=== PATIENT | female | born 1990 | race Caucasian/White ===

== ENCOUNTER 2016-05-22 03:55 | Emergency (ER) | payer OTHER ==
[2016-05-22 04:01] VITALS: BMI 22.3
[2016-05-22] MEDS ORDERED: SODIUM CHLORIDE 1,000 ML IV STA (04:21)
[2016-05-22] MEDS ORDERED: ONDANSETRON 4 MG/2 ML VIAL IVPUSH ONE (04:21)
[2016-05-22] MEDS ORDERED: ONDANSETRON 4 MG/2 ML VIAL ONE (04:34)
[2016-05-22 04:54] LABS: BASOPHIL 0.6 % (0-2.0); EOSINOPHIL 5.8 % (0-4.5); MCH 27.7 pg (25.7-33.7); MCHC 32.9 g/dl (32.0-36.0); MEAN CELL VOLUME 84.1 fl (80-96); MEAN PLT VOLUME 9.5 fl (7.5-11.1); NEUTROPHILS 68.8 % (42.8-82.8); PLATELET COUNT 196 K/MM3 (134-434); RDW 14.4 % (11.6-15.6)
[2016-05-22 04:55] LABS: URINE APPEARANCE CLEAR; URINE BILIRUBIN NEGATIVE (NEGATIVE); URINE COLOR LTYELLOW; URINE GLUCOSE (UA) NEGATIVE (NEGATIVE); URINE KETONE NEGATIVE (NEGATIVE); URINE LEUK ESTERASE NEGATIVE (NEGATIVE); URINE NITRITE NEGATIVE (NEGATIVE); URINE PROTEIN NEGATIVE (NEGATIVE); URINE UROBILINOGEN NEGATIVE E.U./dl (0.2-1.0)
[2016-05-22 05:06] LABS: URINE BLOOD 3+ (NEGATIVE)
[2016-05-22 05:13] LABS: URINE MUCUS FEW; URINE RBC <1 /hpf (0-3); URINE WBC 4 /hpf (3-5)
[2016-05-22 05:23] LABS: ALBUMIN 3.6 g/dl (3.4-5.0); AMYLASE 71 U/L (25-115); ANION GAP 7 (8-16); BILIRUBIN,DIRECT 0.1 mg/dL (0.0-0.2); BILIRUBIN,TOTAL 0.3 mg/dL (0.2-1.0); CO2 27 mmol/L (21-32); CREATININE 0.8 mg/dL (0.55-1.02); GLUCOSE,RANDOM 97 mg/dL (74-106); SGOT/AST 45 U/L (15-37); SGPT/ALT 33 U/L (12-78); TOT PROT 6.8 g/dl (6.4-8.2)
[2016-05-22 05:26] LABS: ALK PHOS 76 U/L (45-117)
[2016-05-22 05:30] LABS: TROPONIN I < 0.02 ng/ml (0.00-0.05)
--- NOTE | 2016-05-22 06:00 | PDOC ---
[id number] ABD PAIN Time Seen by Provider: 05/22/16 04:05 History Source: Patient Exam Limitations: No Limitations - History of Present Illness Travel History: No Initial Comments: 05/22/16 04:47 26yo Female patient presents to ED via EMS c/o sudden onset epigastric abd pain. Patient states she fell asleep at 7pm after eating to be woken up by abd pain at 12am. Boyfriend states he accidentally gave her Percocet when abd pain worsened shortly after. She denies n/v/d, fever, CP, back pain, diff breathing, cough, dysuria, rectal bleeding or any other complaints at this time. LNMP: Current. Timing/Duration: reports: getting worse Quality: reports: severe Abdominal Pain Onset Location: reports: RUQ, epigastric Pain Radiation: reports: no radiation Activities at Onset: reports: no specific activity Treatment Prior to Arrive: worse with: analgesics, antacids, cold pack, heat, laxative, enema, other Alleviating Factors: worse with: None, Belching, Shallow Breathing, Defecation, Eating, Holding Breath, Passing Gas, Change in Position, Rest, Voiding, Vomiting Past History - Travel Traveled outside of the country in the last 30 days: No Close contact w/someone who was outside of country & ill: No - Past Medical History Allergies/Adverse Reactions: Allergies Allergy/AdvReac Type Severity Reaction Status Date / Time No Known Allergies Allergy Verified 09/08/15 13:37 Home Medications: Ambulatory Orders Oxycodone HCl/Acetaminophen [Percocet 5-325 mg Tablet] 1 - 2 tab PO Q4H #40 tablet MDD 10 06/14/16 - Reproductive History (#): 2 Para: 1 - Immunization History Immunization Up to Date: Yes - Psycho/Social/Smoking Cessation Hx Anxiety: No Suicidal Ideation: No Smoking Status: No Smoking History: Never smoked Have you smoked in the past 12 months: No Number of Cigarettes Smoked Daily: 0 Information on smoking cessation initiated: No Hx Alcohol Use: No Drug/Substance Use Hx: No Substance Use Type: None Abd/GI Specific PMHX - Complaint Specific PMHX Colitis: No Diverticulitis: No Gall Bladder Disease: No GERD: No Hepatitis: No Irritable Bowel Synd (IBS): No Pancreatitis: No GI Ulcer Disease: No Review of Systems - Review of Systems Able to Perform ROS?: Yes Is the patient limited [place] proficient: No Constitutional: No: Chills, Fever Respiratory: No: Shortness of Breath, Stridor, Wheezing Cardiac (ROS): No: Chest Pain, Lightheadedness, Palpitations, Syncope, Chest Tightness ABD/GI: No: Constipated, Diarrhea, Nausea, Poor Appetite, Poor Fluid Intake, Rectal Bleeding, Vomiting, Tarry Stools : No: Dysuria, Hematuria Musculoskeletal: No: Back Pain All Other Systems: Reviewed and Negative *Physical Exam - Vital Signs Last Vital Signs Temp Pulse Resp BP Pulse Ox 97.7 F 64 15 113/79 100 05/22/16 03:59 05/22/16 03:59 05/22/16 03:59 05/22/16 03:59 05/22/16 03:59 - Physical Exam General Appearance: Yes: Nourished, Appropriately Dressed, Moderate Distress. No: Apparent Distress, Mild Distress, Severe Distress Neck: positive: Trachea midline, Supple. negative: Lymphadenopathy (R), Lymphadenopathy (L) Respiratory/Chest: positive: Lungs Clear, Normal Breath Sounds. negative: Respiratory Distress, Accessory Muscle Use, Labored Respiration, Rapid RR Cardiovascular: positive: Regular Rhythm, Regular Rate. negative: Edema, JVD, Murmur Gastrointestinal/Abdominal: positive: Tender (epigastric abdominal pain), Soft, Decreased BS, Guarding, Rebound, Tenderness Musculoskeletal: positive: Normal Inspection. negative: CVA Tenderness Extremity: positive: Normal Capillary Refill, Normal Inspection, Normal Range of Motion Integumentary: positive: Normal Color, Dry, Warm Neurologic: positive: labor relations manager II-XII NML intact, Fully Oriented, Alert, Normal Mood/ Affect, Normal Response, Motor Strength 5/5 ED Treatment Course - LABORATORY CBC & Chemistry Diagram: 05/22/16 04:37 05/22/16 04:37 - ADDITIONAL ORDERS Additional order review: Laboratory Results 05/22/16 05/22/16 05/22/16 04:37 04:37 04:37 Sodium 140 Potassium 3.7 Chloride 106 Carbon Dioxide 27 Anion Gap 7 L BUN 11 D Creatinine 0.8 Random Glucose 97 Calcium 8.0 L Total Bilirubin 0.3 D Direct Bilirubin 0.1 AST 45 H D ALT 33 D Alkaline Phosphatase 76 D Creatine Kinase 52 Troponin I < 0.02 Total Protein 6.8 Albumin 3.6 Total Amylase 71 Lipase 365 Beta HCG, Quant < 1.0 Urine Color Ltyellow Urine Appearance Clear Urine pH 5.0 Ur Specific [place] 1.020 Urine Protein Negative Urine Glucose (UA) Negative Urine Ketones Negative Urine Blood 3+ H Urine Nitrite Negative Urine Bilirubin Negative Urine Urobilinogen Negative Ur Leukocyte Esterase Negative Urine RBC <1 Urine WBC 4 Ur Epithelial Cells Few Urine Mucus Few 05/22/16 04:37 RBC 5.01 MCV 84.1 MCHC 32.9 RDW 14.4 MPV 9.5 Neutrophils % 68.8 Lymphocytes % 18.6 Monocytes % 6.2 Eosinophils % 5.8 H D Basophils % 0.6 - RADIOLOGY Radiology Studies Ordered: Category Date Time Status ABDOMEN & PELVIS CT WITH CONTR [CT] Stat CT Scan 05/22/16 04:21 Ordered CHEST PA & LAT [RAD] Stat Radiology 05/22/16 04:21 Ordered - Medications Given in the ED: ED Medications Discontinued Medications Generic Name Dose Route Start Last Admin Trade Name Freq PRN Reason Stop Dose Admin Sodium Chloride 1,000 mls @ 1,000 mls/hr 05/22/16 04:21 05/22/16 04:45 Normal Saline - IV 05/22/16 05:20 1,000 mls/hr ASDIR STA Administration Ondansetron HCl 4 mg 05/22/16 04:21 05/22/16 04:45 Zofran Injection IVPUSH 05/22/16 04:22 4 mg ONCE ONE Administration *DC/Admit/Observation/Transfer Diagnosis at time of Disposition: Abdominal pain Qualifiers: Abdominal location: epigastric Qualified Code(s): R10.13 - Epigastric pain - Discharge Dispostion Disposition: HOME Condition at time of disposition: Good Admit: No - Referrals Referrals: Dmitry Julien MD [Staff Physician] - Marilynn Madrid MD [Primary Care Provider] - - Patient Instructions Printed Discharge Instructions: DI for Abdominal Pain-Adult, DI for Cholecystitis Additional Instructions: Although the Cat scan was essentially negative, I do recommend following up with a surgeon as referred. If symptoms worsen please come to the Emergency dept. Avoid fat greasy food. I have enclosed instructions about cholecystitis.
[2016-05-22] MEDS ORDERED: FAMOTIDINE 20 MG/50 ML IVPB 50 ML IVPB ONE ×2 (06:21→06:33)
[2016-05-22] MEDS ORDERED: PANTOPRAZOLE SODIUM 40 MG in SODIUM CHLORIDE 100 ML IVPB ONE (06:21)
[2016-05-22] MEDS ORDERED: PANTOPRAZOLE SODIUM 100 ML IVPB ONE (06:33)
--- NOTE | 2016-05-22 08:49 | PDOC ---
*Physical Exam - Vital Signs Last Vital Signs Temp Pulse Resp BP Pulse Ox 97.7 F 64 15 113/79 100 05/22/16 03:59 05/22/16 03:59 05/22/16 03:59 05/22/16 03:59 05/22/16 03:59 ED Treatment Course - LABORATORY CBC & Chemistry Diagram: 05/22/16 04:37 05/22/16 04:37 - ADDITIONAL ORDERS Additional order review: Laboratory Results 05/22/16 05/22/16 05/22/16 04:37 04:37 04:37 Sodium 140 Potassium 3.7 Chloride 106 Carbon Dioxide 27 Anion Gap 7 L BUN 11 D Creatinine 0.8 Random Glucose 97 Calcium 8.0 L Total Bilirubin 0.3 D Direct Bilirubin 0.1 AST 45 H D ALT 33 D Alkaline Phosphatase 76 D Creatine Kinase 52 Troponin I < 0.02 Total Protein 6.8 Albumin 3.6 Total Amylase 71 Lipase 365 Beta HCG, Quant < 1.0 Urine Color Ltyellow Urine Appearance Clear Urine pH 5.0 Ur Specific [place] 1.020 Urine Protein Negative Urine Glucose (UA) Negative Urine Ketones Negative Urine Blood 3+ H Urine Nitrite Negative Urine Bilirubin Negative Urine Urobilinogen Negative Ur Leukocyte Esterase Negative Urine RBC <1 Urine WBC 4 Ur Epithelial Cells Few Urine Mucus Few 05/22/16 04:37 RBC 5.01 MCV 84.1 MCHC 32.9 RDW 14.4 MPV 9.5 Neutrophils % 68.8 Lymphocytes % 18.6 Monocytes % 6.2 Eosinophils % 5.8 H D Basophils % 0.6 - Medications Given in the ED: ED Medications Discontinued Medications Generic Name Dose Route Start Last Admin Trade Name Isaac PRN Reason Stop Dose Admin Sodium Chloride 1,000 mls @ 1,000 mls/hr 05/22/16 04:21 05/22/16 04:45 Normal Saline - IV 05/22/16 05:20 1,000 mls/hr ASDIR STA Administration Pantoprazole Sodium 40 mg/ 100 mls @ 200 mls/hr 05/22/16 06:21 05/22/16 06:44 Sodium Chloride IVPB 05/22/16 06:50 200 mls/hr ONCE ONE Administration Famotidine/Sodium Chloride 50 mls @ 100 mls/hr 05/22/16 06:21 05/22/16 06:37 Pepcid 20 Mg Premixed Ivpb - IVPB 05/22/16 06:50 100 mls/hr ONCE ONE Administration Ondansetron HCl 4 mg 05/22/16 04:21 05/22/16 04:45 Zofran Injection IVPUSH 05/22/16 04:22 4 mg ONCE ONE Administration Medical Decision Making - Medical Decision Making 05/22/16 08:7 Received signout from Nurse Practitioner Rob. Patient with abdominal pain. Patient pending CT. Patient labs otherwise unremarkable. Patient presently comfortable. Vital signs stable. 05/22/16 08:48 Laboratory Tests 05/22/16 05/22/16 05/22/16 04:37 04:37 04:37 WBC 12.0 H Hgb 13.9 Hct 42.1 Plt Count 196 Neutrophils % 68.8 Sodium 140 Potassium 3.7 Chloride 106 Carbon Dioxide 27 Anion Gap 7 L Creatinine 0.8 Random Glucose 97 Calcium 8.0 L Direct Bilirubin 0.1 AST 45 H D ALT 33 D Troponin I Total Amylase 71 Lipase 365 Urine Blood 3+ H Ur Leukocyte Esterase Negative Urine RBC <1 Urine WBC 4 05/22/16 04:37 WBC Hgb Hct Plt Count Neutrophils % Sodium Potassium Chloride Carbon Dioxide Anion Gap Creatinine Random Glucose Calcium Direct Bilirubin AST ALT Troponin I < 0.02 Total Amylase Lipase Urine Blood Ur Leukocyte Esterase Urine RBC Urine WBC 05/22/16 09:10 Ct shows thickened with a small amount of pericholecystic fluid. There is no definite acid with acute cholecystitis cannot be excluded and follow-up images including sonogram or nuclear medicine imaging is now recommended. Otherwise the CT is negative. *DC/Admit/Observation/Transfer Diagnosis at time of Disposition: Abdominal pain Qualifiers: Abdominal location: epigastric Qualified Code(s): R10.13 - Epigastric pain - Discharge Dispostion Disposition: HOME Condition at time of disposition: Good - Referrals Referrals: Marilynn Madrid MD [Primary Care Provider] - Dmitry Julien MD [Staff Physician] - - Patient Instructions Printed Discharge Instructions: DI for Abdominal Pain-Adult, DI for Cholecystitis Additional Instructions: Although the Cat scan was essentially negative, I do recommend following up with a surgeon as referred. If symptoms worsen please come to the Emergency dept. Avoid fat greasy food. I have enclosed instructions about cholecystitis.
[2016-05-22 09:34] VITALS: BP 97/51; PULSE 61; TEMP 98
--- NOTE | 2016-05-22 12:42 | EKG ---
Test Reason : Blood Pressure : / mmHG Vent. Rate : 060 BPM Atrial Rate : 060 BPM P-R Int : 212 ms QRS Dur : 088 ms QT Int : 430 ms P-R-T Axes : 033 023 012 degrees QTc Int : 430 ms SINUS RHYTHM WITH SINUS ARRHYTHMIA WITH 1ST DEGREE A-V BLOCK ABNORMAL ECG NO PREVIOUS ECGS AVAILABLE Confirmed by SYD VANG, GRUPO ([id number]) on 05/22/2016 12:42:27 PM Referred By: Confirmed By:GRUPO VELARDE MD
== END 2016-05-22 09:34 | disposition home or self-care (01) ==
LOC: JER 03:55
PROC: 3E033GC Introduction of Other Therapeutic Substance into Peripheral Vein, Percutaneous Approach (ICD-10-PCS; principal; 2016-05-22)
DX: R10.13 Epigastric pain (principal)
CPT/HCPCS: 36415; 71020-TC; 74177-TC; 80048; 80076; 81003; 81015; 82150; 82550; 83690; 84484; 84702; 85025; 87086; 93005; 93010; 96374; 99282-25

== ENCOUNTER 2016-06-13 02:50 | Inpatient (IN) | payer OTHER ==
--- NOTE | 2016-06-13 03:02 | PDOC ---
History of Present Illness - General History Source: Patient Exam Limitations: No Limitations - History of Present Illness Initial Comments: 06/13/16 04:54 The patient is a 26 year old female with no significant past medical history who presents to the ED with right upper quadrant few hours prior to arrival. Patient was seen here on 05/22 for abdominal pain, where she was diagnosed with gallstones (shown on abdomen CT). She was treated with resolution and discharge. Patient returns today after she was awoken from her sleep with right upper quadrant pain and associated nausea and vomiting, but no diarrhea. The patient denies fever, chills, cough, SOB, chest pain, and palpitations. The patient denies dysuria, hematuria, urgency, and frequency. Allergies: NKDA Social History: No alcohol, tobacco, or drug use reported. Past Surgical History: None reported PCP: Dr. Tarik Forrest <Caryn Gill - Last Filed: 06/13/16 04:55> - General History Source: Patient <Milton Martinez - Last Filed: 06/13/16 19:36> - General Chief Complaint: Pain Stated Complaint: ABD PAIN Time Seen by Provider: 06/13/16 03:02 Past History <Caryn Gill - Last Filed: 06/13/16 04:55> - Reproductive History (#): 2 Para: 1 - Immunization History Immunization Up to Date: Yes - Psycho/Social/Smoking Cessation Hx Anxiety: No Suicidal Ideation: No Smoking Status: No Smoking History: Never smoked Have you smoked in the past 12 months: No Number of Cigarettes Smoked Daily: 0 Hx Alcohol Use: No Drug/Substance Use Hx: No Substance Use Type: None <Milton Martinez - Last Filed: 06/13/16 19:36> - Past Medical History Allergies/Adverse Reactions: Allergies Allergy/AdvReac Type Severity Reaction Status Date / Time No Known Allergies Allergy Verified 06/13/16 03:00 Home Medications: Ambulatory Orders NK [No Known Home Medication] 06/13/16 Review of Systems - Review of Systems Able to Perform ROS?: Yes Comments:: 06/13/16 04:55 CONSTITUTIONAL: Absent: fever, no chills, no fatigue EYES: Absent: visual changes ENT: Absent: ear pain, no sore throat CARDIOVASCULAR: Absent: chest pain, no palpitations RESPIRATORY: Absent: cough, no SOB GI: +right upper quadrant pain, nausea, vomiting Absent: no constipation, no diarrhea GENITOURINARY: Absent: dysuria, no frequency, no hematuria MUSCULOSKELETAL: Absent: back pain, no arthralgia, no myalgia SKIN: Absent: rash NEURO: Absent: headache <RonnieCaryn garcia - Last Filed: 06/13/16 04:55> *Physical Exam - Vital Signs Last Vital Signs Temp Pulse Resp BP Pulse Ox 98.1 F 75 18 135/73 99 06/13/16 03:39 06/13/16 03:39 06/13/16 03:39 06/13/16 03:39 06/13/16 03:39 - Physical Exam Comments: 06/13/16 04:55 GENERAL: Well-appearing, well-nourished. No apparent distress. HEENT: Normocephalic, atraumatic. PERRL, EOM intact. CARDIOVASCULAR: Normal S1, S2. Regular rate and rhythm. PULMONARY: Clear to auscultation bilaterally. ABDOMEN: Soft, non-distended, right upper quadrant tenderness, positive murphys sign, negative rebound and guarding. EXTREMITIES: Normal ROM in all four extremities. No gross deformities. SKIN: Warm, dry. No rash NEUROLOGICAL: No focal neurological deficits. <Caryn Gill - Last Filed: 06/13/16 04:55> ED Treatment Course - LABORATORY CBC & Chemistry Diagram: 06/13/16 03:00 06/13/16 03:00 - ADDITIONAL ORDERS Additional order review: 06/13/16 03:00 RBC 5.01 MCV 84.4 MCHC 32.7 RDW 14.4 MPV 9.8 Neutrophils % 55.2 Lymphocytes % 27.6 D Monocytes % 9.2 Eosinophils % 7.3 H Basophils % 0.7 - Medications Given in the ED: ED Medications Discontinued Medications Generic Name Dose Route Start Last Admin Trade Name Tuq PRN Reason Stop Dose Admin Hydromorphone HCl 0.5 mg 06/13/16 04:20 06/13/16 04:26 Dilaudid Injection - IVPUSH 06/13/16 04:21 0.5 mg ONCE ONE Administration Morphine Sulfate 6 mg 06/13/16 03:03 06/13/16 03:16 Morphine Injection - IVPUSH 06/13/16 03:04 6 mg ONCE ONE Administration Ondansetron HCl 4 mg 06/13/16 03:03 06/13/16 03:16 Zofran Injection IVPUSH 06/13/16 03:04 4 mg ONCE STA Administration <Caryn Gill - Last Filed: 06/13/16 04:55> - LABORATORY CBC & Chemistry Diagram: 06/13/16 18:20 06/13/16 03:00 <Milton Martinez - Last Filed: 06/13/16 19:36> Medical Decision Making - Medical Decision Making 06/13/16 19:35 Dr. Martinez: The scribe's documentation has been prepared under my direction and personally reviewed by me in its entirery. I confirm that the note above accurately reflects all work, treatment, procedures, and medical decision making performed by me. Patient found to have cholecystitis. [facility] be [facility] to [facility] <Milton Martinez - Last Filed: 06/13/16 19:36> *DC/Admit/Observation/Transfer - Attestations Scribe Attestion: 06/13/16 04:56 Documentation prepared by Caryn Gill, acting as senior medical director for Milton Martinez MD <Caryn Gill - Last Filed: 06/13/16 04:55> <Milton Martinez - Last Filed: 06/13/16 19:36> Diagnosis at time of Disposition: Cholecystitis - Discharge Dispostion Condition at time of disposition: Fair
[2016-06-13] MEDS ORDERED: ONDANSETRON 4 MG/2 ML VIAL IVPUSH STA (03:03)
[2016-06-13] MEDS ORDERED: morphine CARPU-JECT 2 MG/1 ML DISP.SYRIN IVPUSH ONE ×2 (03:03→20:06)
[2016-06-13] MEDS ORDERED: morphine CARPU-JECT 2 MG/1 ML DISP.SYRIN ONE (03:09)
[2016-06-13] MEDS ORDERED: ONDANSETRON 4 MG/2 ML VIAL ONE (03:09)
[2016-06-13] MEDS: SODIUM CHLORIDE 1,000 ML IV SCH ×2 (03:16→14:46)
[2016-06-13 03:23] LABS: BASOPHIL 0.7 % (0-2.0); EOSINOPHIL 7.3 % (0-4.5); MCH 27.6 pg (25.7-33.7); MCHC 32.7 g/dl (32.0-36.0); MEAN CELL VOLUME 84.4 fl (80-96); MEAN PLT VOLUME 9.8 fl (7.5-11.1); NEUTROPHILS 55.2 % (42.8-82.8); PLATELET COUNT 212 K/MM3 (134-434); RDW 14.4 % (11.6-15.6); WHITE BLOOD COUNT 10.6 K/mm3 (4.0-10.0)
[2016-06-13] MEDS ORDERED: HYDROmorphone HCL CARPU-JECT 1 MG/1 ML DISP.SYRIN IVPUSH ONE (04:20)
[2016-06-13 04:57] LABS: ALBUMIN 3.5 g/dl (3.4-5.0); ALK PHOS 66 U/L (45-117); AMYLASE 61 U/L (25-115); ANION GAP 10 (8-16); BILIRUBIN,TOTAL 0.3 mg/dL (0.2-1.0); CALCIUM 8.5 mg/dL (8.5-10.1); CO2 26 mmol/L (21-32); CREATININE 0.9 mg/dL (0.55-1.02); GLUCOSE,RANDOM 102 mg/dL (74-106); SGOT/AST 16 U/L (15-37); SGPT/ALT 14 U/L (12-78); TOT PROT 6.9 g/dl (6.4-8.2)
[2016-06-13 05:41] LABS: URINE APPEARANCE CLEAR; URINE BILIRUBIN NEGATIVE (NEGATIVE); URINE BLOOD NEGATIVE (NEGATIVE); URINE COLOR STRAW; URINE GLUCOSE (UA) NEGATIVE (NEGATIVE); URINE KETONE NEGATIVE (NEGATIVE); URINE LEUK ESTERASE NEGATIVE (NEGATIVE); URINE NITRITE NEGATIVE (NEGATIVE); URINE PROTEIN NEGATIVE (NEGATIVE); URINE UROBILINOGEN NEGATIVE E.U./dl (0.2-1.0)
--- NOTE | 2016-06-13 08:39 | PDOC ---
*Physical Exam - Vital Signs Last Vital Signs Temp Pulse Resp BP Pulse Ox 97.8 F 69 19 112/71 99 06/13/16 08:32 06/13/16 08:32 06/13/16 08:32 06/13/16 08:32 06/13/16 08:32 <Joe High - Last Filed: 06/13/16 08:40> - Vital Signs Last Vital Signs Temp Pulse Resp BP Pulse Ox 97.8 F 69 19 112/71 99 06/13/16 08:32 06/13/16 08:32 06/13/16 08:32 06/13/16 08:32 06/13/16 08:32 - Physical Exam Comments: 06/13/16 08:36 afebrile No jaundice. RUQ discomfort to palpation, guarding has resolved. <Shayan Gutierrez - Last Filed: 06/13/16 08:42> ED Treatment Course - LABORATORY CBC & Chemistry Diagram: 06/13/16 03:00 06/13/16 03:00 - ADDITIONAL ORDERS Additional order review: Laboratory Results 06/13/16 06/13/16 04:49 03:00 Sodium 140 Potassium 3.9 Chloride 104 Carbon Dioxide 26 Anion Gap 10 BUN 15 D Creatinine 0.9 Creat Clearance w eGFR > 60 Random Glucose 102 Calcium 8.5 Magnesium 2.0 Total Bilirubin 0.3 AST 16 D ALT 14 D Alkaline Phosphatase 66 Total Protein 6.9 Albumin 3.5 Total Amylase 61 Lipase 180 Urine Color Straw Urine Appearance Clear Urine pH 6.0 Ur Specific [place] 1.012 Urine Protein Negative Urine Glucose (UA) Negative Urine Ketones Negative Urine Blood Negative Urine Nitrite Negative Urine Bilirubin Negative Urine Urobilinogen Negative Ur Leukocyte Esterase Negative Urine HCG, Qual Negative 06/13/16 03:00 RBC 5.01 MCV 84.4 MCHC 32.7 RDW 14.4 MPV 9.8 Neutrophils % 55.2 Lymphocytes % 27.6 D Monocytes % 9.2 Eosinophils % 7.3 H Basophils % 0.7 - Medications Given in the ED: ED Medications Discontinued Medications Generic Name Dose Route Start Last Admin Trade Name Freq PRN Reason Stop Dose Admin Hydromorphone HCl 0.5 mg 06/13/16 04:20 06/13/16 04:26 Dilaudid Injection - IVPUSH 06/13/16 04:21 0.5 mg ONCE ONE Administration Morphine Sulfate 6 mg 06/13/16 03:03 06/13/16 03:16 Morphine Injection - IVPUSH 06/13/16 03:04 6 mg ONCE ONE Administration Ondansetron HCl 4 mg 06/13/16 03:03 06/13/16 03:16 Zofran Injection IVPUSH 06/13/16 03:04 4 mg ONCE STA Administration <Joe High - Last Filed: 06/13/16 08:40> - LABORATORY CBC & Chemistry Diagram: 06/13/16 03:00 06/13/16 03:00 - ADDITIONAL ORDERS Additional order review: Laboratory Results 06/13/16 06/13/16 04:49 03:00 Sodium 140 Potassium 3.9 Chloride 104 Carbon Dioxide 26 Anion Gap 10 BUN 15 D Creatinine 0.9 Creat Clearance w eGFR > 60 Random Glucose 102 Calcium 8.5 Magnesium 2.0 Total Bilirubin 0.3 AST 16 D ALT 14 D Alkaline Phosphatase 66 Total Protein 6.9 Albumin 3.5 Total Amylase 61 Lipase 180 Urine Color Straw Urine Appearance Clear Urine pH 6.0 Ur Specific [place] 1.012 Urine Protein Negative Urine Glucose (UA) Negative Urine Ketones Negative Urine Blood Negative Urine Nitrite Negative Urine Bilirubin Negative Urine Urobilinogen Negative Ur Leukocyte Esterase Negative Urine HCG, Qual Negative 06/13/16 03:00 RBC 5.01 MCV 84.4 MCHC 32.7 RDW 14.4 MPV 9.8 Neutrophils % 55.2 Lymphocytes % 27.6 D Monocytes % 9.2 Eosinophils % 7.3 H Basophils % 0.7 - Medications Given in the ED: ED Medications Discontinued Medications Generic Name Dose Route Start Last Admin Trade Name Isaac PRN Reason Stop Dose Admin Hydromorphone HCl 0.5 mg 06/13/16 04:20 06/13/16 04:26 Dilaudid Injection - IVPUSH 06/13/16 04:21 0.5 mg ONCE ONE Administration Morphine Sulfate 6 mg 06/13/16 03:03 06/13/16 03:16 Morphine Injection - IVPUSH 06/13/16 03:04 6 mg ONCE ONE Administration Ondansetron HCl 4 mg 06/13/16 03:03 06/13/16 03:16 Zofran Injection IVPUSH 06/13/16 03:04 4 mg ONCE STA Administration <Shayan Gutierrez - Last Filed: 06/13/16 08:42> Medical Decision Making - Medical Decision Making 06/13/16 08:39 Call made to , medication manager surgeon, awaiting call back. 06/13/16 08:40 Call back from , attending surgeon, case discussed. <Joe High - Last Filed: 06/13/16 08:40> - Medical Decision Making 06/13/16 08:37 Received signout on this 26-year-old female with known history of gallstones who presents with exacerbation of right upper quadrant pain. Labs were normal (wbc 10.6), plan was to follow-up ultrasound. Urine negative. Ultrasound shows impacted gallstones with thickened gallbladder wall and pericholecystic fluid. Given the persistence of right upper quadrant pain and discomfort on exam, will consult general surgery. Case was discussed with Dr. Andrea Winn of general surgery, who accepts the patient for admission and will likely operate later today. <Shayan Gutierrez - Last Filed: 06/13/16 08:42> *DC/Admit/Observation/Transfer - Attestations Scribe Attestion: 06/13/16 08:41 Documentation prepared by Joe High, acting as bilingual medical assistant for Shayan Gutierrez MD. <Joe High - Last Filed: 06/13/16 08:40> - Discharge Dispostion Admit: Yes <Shayan Gutierrez - Last Filed: 06/13/16 08:42> Diagnosis at time of Disposition: Cholecystitis - Discharge Dispostion Condition at time of disposition: Fair - Referrals Referrals: Tarik Forrest MD [Primary Care Provider] - - Patient Instructions - Post Discharge Activity
[2016-06-13] MEDS ORDERED: SODIUM CHLORIDE 1,000 ML IV ONE (08:41)
[2016-06-13 09:41] LABS: INR 1.14 (0.82-1.09); PROTHROMBIN TIME (PATIENT) 12.6 SEC (9.98-11.88)
[2016-06-13 12:11] VITALS: BMI 21.9
--- NOTE | 2016-06-13 13:27 | HP ---
Admitting History and Physical - Admission Chief Complaint: epigastric pain History of Present Illness: pt with severe epigastric pain lasting for hours. had this 3 weeks ago. In ED ultrasound shows thickened GB Wall, stones and CBD at 6.5mm. LFTs wnl. History Source: Patient - Past Medical History ...LMP: 05/22/16 - Smoking History Smoking history: Never smoked Have you smoked in the past 12 months: No Aproximately how many cigarettes per day: 0 - Alcohol/Substance Use Hx Alcohol Use: No Home Medications - Allergies Allergies/Adverse Reactions: Allergies Allergy/AdvReac Type Severity Reaction Status Date / Time No Known Allergies Allergy Verified 06/13/16 03:00 - Home Medications Home Medications: Ambulatory Orders NK [No Known Home Medication] 06/13/16 Family Disease History - Family Disease History Family History: Denies Review of Systems - Review of Systems Constitutional: denies: Chills, Fever Eyes: denies: Blind Spots, Blurred Vision HENT: denies: Difficult Swallowing, Ear Discharge Neck: denies: Decreased ROM, Lumps Cardiovascular: denies: Chest Pain, Edema Respiratory: denies: Cough, Exercise Intolerance Gastrointestinal: reports: Abdominal Pain. denies: Diarrhea Genitourinary: denies: Burning, Discharge Breasts: denies: Pain, Skin Changes Musculoskeletal: denies: Back Pain, Crepitus Integumentary: denies: Blister, Bruising Neurological: denies: Change in LOC, Change in Speech Endocrine: denies: Excessive Sweating, Flushing Hematology/Lymphatic: denies: Easily Bruised, Excessive Bleeding Psychiatric: denies: Altered Sleep Pattern, Anxiety Physical Examination Vital Signs: Vital Signs Temperature 97.8 F 06/13/16 08:32 Pulse Rate 66 06/13/16 10:00 Respiratory Rate 18 06/13/16 10:00 Blood Pressure 147/83 06/13/16 10:00 O2 Sat by Pulse Oximetry (%) 100 06/13/16 10:00 Constitutional: Yes: No Distress, Calm Eyes: Yes: Conjunctiva Clear, EOM Intact HENT: Yes: Atraumatic, Normocephalic Neck: Yes: Supple, Trachea Midline Cardiovascular: Yes: Regular Rate and Rhythm Respiratory: Yes: Regular, CTA Bilaterally Gastrointestinal: Yes: Soft, Tenderness, Epigastrium (min mild). No: Distention ...Rectal Exam: Yes: Deferred Renal/: No: CVA Tenderness - Left, CVA Tenderness - Right Breast(s): No: Dimpling, Skin Changes Musculoskeletal: No: Back Pain, Joint Stiffness Extremities: No: Calf Tenderness, Erythema Integumentary: No: Erythema, Rash Neurological: Yes: Alert, Oriented Psychiatric: Yes: Alert, Oriented Labs: CBC, BMP 06/13/16 03:00 06/13/16 03:00 Imaging - Results Ultrasound: Report Reviewed Problem List - Problems (1) Cholecystitis Assessment/Plan: explained to pt clinical significance of 6.5mm CBD. will order MRCP if schedule doesn't accomodate patient wants to have surgery with [facility] and understands possbility of needing ERCP. npo IVF Code(s): K81.9 - CHOLECYSTITIS, UNSPECIFIED
[2016-06-13] MEDS ORDERED: ROCURONIUM BROMIDE 50 MG/5 ML VIAL ONE (15:25)
[2016-06-13] MEDS ORDERED: PROPOFOL 20 ML ONE (15:25)
[2016-06-13] MEDS ORDERED: MIDAZOLAM HCL 2 MG/2 ML SINGLE DOSE VIAL ONE (15:26)
[2016-06-13] MEDS ORDERED: LIDOCAINE HCL/PF 2% SDV 5ML VIAL ONE (15:27)
[2016-06-13] MEDS ORDERED: ceFAZolin SODIUM 1 GM VIAL ONE (16:04)
[2016-06-13] MEDS ORDERED: ceFAZolin SODIUM 1 GM VIAL IVPB ONE (16:04)
[2016-06-13] MEDS ORDERED: SODIUM CHLORIDE 0.9% P/F 10 ML VIAL IJ ONE (16:04)
[2016-06-13] MEDS ORDERED: DEXAMETHASONE SOD PHOSPHATE 4 MG/1 ML VIAL ONE (16:21)
[2016-06-13] MEDS ORDERED: GLYCOPYRROLATE 0.2 MG/1 ML VIAL ONE (16:38)
[2016-06-13] MEDS ORDERED: LIDOCAINE HCL 4% TOPICAL SOLN (50 ML/BOTTLE) ONE (16:38)
[2016-06-13] MEDS ORDERED: NEOSTIGMINE METHYLSULFATE 0.5 MG/ML - 10 ML MDV ONE (16:40)
--- NOTE | 2016-06-13 16:42 | OP ---
Operative Note - Note: Operative Date: 06/13/16 Pre-Operative Diagnosis: acute on chronic cholecystitis Operation: laparoscopic cholecystectomy Findings: acute cholecystitis Post-Operative Diagnosis: Same as Pre-op Surgeon: Andrea Winn Fashion Consultant: Verna Raya Anesthesia: General Estimated Blood Loss (mls): 10 Operative Report Dictated: Yes
[2016-06-13] MEDS ORDERED: oxyCODONE HCL 5 MG TABLET PO PRN (16:45)
[2016-06-13] MEDS ORDERED: BUPIVACAINE HCL/PF 0.5% (5MG/ML) 10 ML VIAL IJ ONE (16:45)
[2016-06-13] MEDS ORDERED: ACETAMINOPHEN 325 MG TABLET (FP) PO PRN (16:45)
[2016-06-13] MEDS ORDERED: ZOLPIDEM TARTRATE 5 MG TABLET PO PRN (16:45)
[2016-06-13] MEDS ORDERED: ONDANSETRON 4 MG/2 ML VIAL IVPB PRN (16:45)
--- NOTE | 2016-06-13 16:59 | SURG ---
Surgery Element Winding Machine Tender Note Element Winding Machine Tender: Verna Raya PA-C Date of Service: 06/13/16 Diagnosis: acute on chronic cholecystitis Procedure: laparoscopic cholecystectomy I was present for the entirety of the operative procedure. For further detail, please refer to operative report. Visit type - Case Type Case Type: ED Admission - Emergency Emergency Visit: Yes ED Registration Date: 06/13/16 Care time: The patient presented to the Emergency Department on the above date and was hospitalized for further evaluation of their emergent condition. - New patient This patient is new to me today: Yes Date on this admission: 06/13/16 - Critical Care Critical Care patient: No
[2016-06-13] MEDS ORDERED: LACTATED RINGERS SOLUTION 1,000 ML IV SCH ×2 (17:00→17:15)
[2016-06-13] MEDS ORDERED: ONDANSETRON 4 MG/2 ML VIAL IVPUSH PRN (17:01)
[2016-06-13] MEDS ORDERED: PROMETHAZINE HCL 25 MG/1 ML VIAL IVPUSH PRN (17:01)
[2016-06-13 18:41] LABS: MCH 27.7 pg (25.7-33.7); MEAN PLT VOLUME 10.1 fl (7.5-11.1); PLATELET COUNT 191 K/MM3 (134-434); RDW 14.8 % (11.6-15.6)
[2016-06-13] MEDS ORDERED: ONDANSETRON 4 MG/2 ML VIAL IVPUSH ONE (20:10)
[2016-06-14] MEDS: SODIUM CHLORIDE 1,000 ML IV SCH (05:23)
[2016-06-14 08:00] VITALS: BP 105/63
[2016-06-14] MEDS: oxyCODONE HCL 5 MG TABLET PO PRN ×2 (08:05→12:49)
[2016-06-14 08:10] LABS: CALCIUM 8.7 mg/dL (8.5-10.1)
[2016-06-14 08:11] LABS: CREATININE 0.7 mg/dL (0.55-1.02)
--- NOTE | 2016-06-14 09:01 | PN ---
Progress Note (short form) - Note Progress Note: Anesthesia postop note 26 y/o F s/p GA for Laparoscopic cholecistectomy POD#1, vss, aaox3, pain well controlled, no complaints. No anesthesia complications.
--- NOTE | 2016-06-14 11:14 | DS ---
Physical Examination Vital Signs: Vital Signs Temperature 97.8 F 06/14/16 08:00 Pulse Rate 63 06/14/16 08:00 Respiratory Rate 20 06/14/16 08:00 Blood Pressure 105/63 06/14/16 08:00 O2 Sat by Pulse Oximetry (%) 96 06/13/16 22:00 Constitutional: Yes: Well Nourished, No Distress, Calm Eyes: Yes: Conjunctiva Clear, EOM Intact HENT: Yes: Atraumatic, Normocephalic Neck: Yes: Supple, Trachea Midline Cardiovascular: Yes: Regular Rate and Rhythm Respiratory: Yes: Regular, CTA Bilaterally Gastrointestinal: Yes: Soft, Distention, Tenderness (near incisions) ...Rectal Exam: Yes: Deferred Renal/: No: CVA Tenderness - Left, CVA Tenderness - Right Musculoskeletal: No: Joint Stiffness, Joint Swelling Extremities: No: Calf Tenderness, Erythema Integumentary: No: Erythema, Rash Wound/Incision: Yes: Clean/Dry, Well Approximated Neurological: Yes: Alert, Oriented Psychiatric: Yes: Alert, Oriented Labs: CBC, BMP 06/13/16 18:20 06/14/16 06:20 Discharge Summary Reason For Visit: CHOLECYSTITIS Current Active Problems Cholecystitis (Acute) Procedures: Principal: laparoscopic cholecystectomy Hospital Course: admitted for acute on chronic cholecystitis. underwent lap ruchi. did well and will be d/kevin Condition: Good - Instructions Diet, Activity, Other Instructions: low fat diet. take laxatives if taking pain medication. no heavy lifting 30lbs x 3 weeks. call office to make appt for follow up in 1-2 weeks [phone] Referrals: Tarik Forrest MD [Primary Care Provider] - Andrea Winn MD [Staff Physician] - Disposition: HOME - Home Medications Comprehensive Discharge Medication List: Ambulatory Orders Oxycodone HCl/Acetaminophen [Percocet 5-325 mg Tablet] 1 - 2 tab PO Q4H #40 tablet MDD 10 06/14/16
--- NOTE | 2016-06-14 12:42 | OP ---
DATE OF OPERATION: 06/13/2016 PREOPERATIVE DIAGNOSIS: Acute on chronic cholecystitis. POSTOPERATIVE DIAGNOSIS: Acute on chronic cholecystitis. SURGEON: Regine Winn MD WELL DRILL OPERATOR CABLE TOOL: KARIN Boothe ANESTHESIA: General endotracheal anesthesia. ESTIMATED BLOOD LOSS: Minimal. OPERATIVE INDICATIONS: Patient is a 26-year-old female with recurrent epigastric pain. On ultrasound had cholecystitis. However, the ultrasound read the common bile duct at 6.5 mm. She underwent a preoperative MRCP which may have shown a filling defect. However, given the lack of elevated liver function tests and that the ultrasound and the MRI showed findings more consistent with acute cholecystitis, the decision was made to proceed with laparoscopic cholecystectomy. Patient was brought to the operating room after confirming name, date of , and medical record number. She was placed in the supine position. Had SCDs for DVT prophylaxis. She was then intubated by the anesthesiologist. Appropriate perioperative antibiotics were then given. She was then prepped and draped in the usual sterile fashion. A timeout was then performed. A 1-inch infraumbilical incision was made and bluntly dissected down to the fascia. I used electrocautery to go through the anterior sheath. I then grabbed the fascia with my Cat clamps. I then grabbed the posterior sheath with a Ana Maria clamp. I then used Metzenbaum scissors to cut and then used my finger to go through the peritoneum. I then placed a 10-mm balloon Ash-type trocar into the abdomen, insufflated the abdomen to a pressure of 15 mmHg. I then placed 5-mm trocars x2 in the right karen abdomen and 1 in the subxiphoid region. The patient was then placed in reverse Trendelenburg position with the right side up and the gallbladder was retracted towards the right shoulder. Using a combination of hook electrocautery and blunt dissection, I dissected out the cystic duct and artery and confirmed that they went directly into the gallbladder and that there were no structures returning to the liver bed. At this point, I then used a 5-mm clip natural remedy consultant. I then applied 4 clips on the duct, 3 on the artery, and cut, leaving 1 clip each on the specimen side. I then used hook electrocautery to take the gallbladder off the liver bed and because there was quite a bit of edema I was able to easily take the gallbladder off the liver bed. It was then placed in a 10-mm specimen retrieval bag and then I inspected the area. There was perfect hemostasis and then I removed the specimen, desufflated the abdomen, and closed the infraumbilical fascia with a [id number] 0 Vicryl suture. The skin and subcutaneous tissues were then reinsured for hemostasis and then we placed 4-0 Monocryl in a subcutaneous fashion for skin closure. Marcaine 0.5%, 10 mL, was then injected into the wound sites for postoperative analgesia. All counts were correct. REGINE WINN M.D. SHAHRIAR/[id number]
[2016-06-14 13:59] VITALS: PULSE 68; TEMP 97.7
--- NOTE | 2016-06-15 16:01 | PATH ---
Surgical Pathology Report Patient Name: SUNITHA FELDER [facility]. Rec. #: [id number] /Age/Gender: 1990 (Age: 26) / F Account: [id number] Location: [address] [place] [address]/[facility] Taken: 06/13/2016 Received: 06/14/2016 Reported: 06/15/2016 Physicians: PHYSICIAN EMERGENCY DEPT Specimen(s) Received GALLBLADDER Clinical History Cholecystitis Final Diagnosis GALLBLADDER, CHOLECYSTECTOMY: ACUTE AND CHRONIC CHOLECYSTITIS WITH CHOLESTEROSIS. CHOLELITHIASIS. Electronically Signed Arely Rahman M.D. Gross Description Received in formalin, labeled "gallbladder," is a 7.3 x 2.5 x 2.5 cm. gallbladder with a 0.2 cm. in length portion of cystic duct attached. The outer surface is ortiz-thompson and varies from smooth to shaggy. The lumen contains green, tenacious bile as well as 2 yellow, ovoid choleliths measuring 0.9 and 1.3 cm in greatest dimension. The mucosa is green and velvety. The wall of the gallbladder ranges from 0.1-0.3 cm. in thickness. Etl Bi Developer sections are submitted in one cassette. 06/14/2016 [facility]06/14/2016
== END 2016-06-14 14:30 | disposition home or self-care (01) | DRG 263 ==
LOC: JER 02:50 → JASUSAT 08:41 → J6S 14:21 → JASUSAT 16:45 → J6S 16:45
PROVIDERS: ADMIT Surgery; ATTEND Surgery
PROC: 0FT44ZZ Resection of Gallbladder, Percutaneous Endoscopic Approach (ICD-10-PCS; principal; 2016-06-13 17:15)
DX: K80.12 Calculus of gallbladder with acute and chronic cholecystitis without obstruction (principal)
CPT/HCPCS: 36415; 74181-TC; 76705-TC; 80048; 80053; 81003; 82150; 83690; 83735; 84703; 85025; 85027; 85610; 86850; 86900; 86901; 88304-TC; 94760; 99285-25